=== PATIENT | female | born 1975 | race Hispanic/Latino ===

== ENCOUNTER 2023-04-30 08:09 | Emergency (ER) | payer OTHER, SELFPAY ==
[~2023-04-30] VITALS: Ht 147.3 cm; Wt 56.4 kg
[2023-04-30] MEDS ORDERED: VENTAER INH ×2 (08:28→14:20)
[2023-04-30] MEDS ORDERED: ALBU2.5V10 NEB (08:28)
[2023-04-30] MEDS ORDERED: ALBUTEROL SULFATE 2.5MG/0.5ML INH NEB SOLN NEB ONE (09:05)
[2023-04-30] MEDS ORDERED: IPRATROPIUM 0.5MG/ALBUTEROL 2.5MG INH SOL UD 3ML (DUONEB) NEB ONE ×2 (09:05→10:15)
[2023-04-30 09:15] LABS: VENOUS BASE EXCESS -1.8 (-2.0-2.0); VENOUS HCO3 22.4 MMOL/L (23.0-27.0); VENOUS O2 SATURATION 88.6 % (60.0-80.0); VENOUS PARTIAL PRESSURE CO2 36.2 mmHg (38.0-50.0); VENOUS PARTIAL PRESSURE O2 55.7 mmHg (30.0-50.0); VENOUS PH 7.409 UNITS (7.330-7.430); VENOUS STANDARD HCO3 22.8 MMOL/L; VENOUS TOTAL CO2 23.5 MMOL/L (24.0-28.0)
[2023-04-30] MEDS ORDERED: methylPREDNISolone 125MG 2ML VIAL IV ONE (09:25)
[2023-04-30 09:26] LABS: BASO # 0.1 10^3/uL (0.0-0.2); BASO % 0.7 % (0.0-1.0); EOS # 0.5 10^3/uL (0.0-0.5); EOS % 7.1 % (0.0-3.0); HEMATOCRIT 35.3 % (36.0-47.0); HEMOGLOBIN 11.3 g/dl (12.0-15.5); LYMPH # 1.3 10^3/uL (1.5-5.0); LYMPH % 18.1 % (24.0-44.0); MEAN CORPUSCULAR HEMOGLOBIN 25.5 pg (27.0-33.0); MEAN CORPUSCULAR VOLUME 79.5 fl (80.0-96.0); MONO # 0.5 10^3/uL (0.0-0.8); MONO % 6.4 % (2.0-8.0); NEUTROPHILS # 4.8 10^3/uL (1.5-8.5); NEUTROPHILS % 67.4 % (36.0-66.0); PLATELET COUNT, AUTOMATED 363 10^3/uL (150-450); RED BLOOD COUNT 4.44 10^6/uL (4.00-5.40); WHITE BLOOD COUNT 7.2 10^3/uL (4.0-10.0)
[2023-04-30 09:31] LABS: ABG HCO3 21.3 MMOL/L (22.0-26.0); ABG O2 SATURATION 73.8 % (95.0-99.0); ABG PARTIAL PRESSURE CO2 35.9 mmHg (35.0-45.0); ABG STANDARD HCO3 21.5 MMOL/L. (22.0-26.0); ABG TOTAL CO2 22.4 MMOL/L (22.0-29.0); ABG pH (ARTERIAL) 7.392 UNITS (7.350-7.450)
[2023-04-30 09:34] LABS: ABG PARTIAL PRESSURE O2 39.7 mmHg (75.0-100.0)
[2023-04-30 09:42] LABS: INR 0.92; PROTHROMBIN TIME 12.6 SECONDS (12.5-14.5)
[2023-04-30 09:47] LABS: CK-MB VALUE MASS < 1.0 NG/ML (<3.6)
[2023-04-30 09:48] LABS: CPK CREATINE PHOSPHOKINASE 84 U/L (34-145); MB/CK RELATIVE INDEX 1.19 (< OR =4)
[2023-04-30 09:49] LABS: ALBUMIN 3.6 G/DL (3.2-5.2); ALKALINE PHOSPHATASE 93 U/L (46-116); ALT/SGPT 10 U/L (7.0-40); AST/SGOT 17 U/L (<34); BILIRUBIN,DIRECT 0.2 MG/DL (<0.4); BILIRUBIN,TOTAL 0.5 MG/DL (0.3-1.2); BLOOD UREA NITROGEN 13 MG/DL (9-23); CALCIUM LEVEL 7.9 MG/DL (8.5-10.1); CARBON DIOXIDE LEVEL 23 MMOL/L (20-31); CHLORIDE LEVEL 108 MMOL/L (98-107); CREATININE FOR GFR 0.51 MG/DL (0.55-1.30); GLOMERULAR FILTRATION RATE > 60.0 (>58); GLUCOSE, FASTING 88 MG/DL (60-100); POTASSIUM SERUM 3.9 MMOL/L (3.5-5.1); SODIUM LEVEL 140 MMOL/L (136-145); TOTAL PROTEIN 6.7 G/DL (5.7-8.2)
[2023-04-30 09:51] LABS: THYROID STIMULATING HORMONE 0.917 uIU/ML (0.55-4.78)
[2023-04-30 09:53] LABS: HCG, SERUM QUALITATIVE NEGATIVE (NEGATIVE)
[2023-04-30] MEDS: MAG SULF 1GM/100ML (MAG RUN) 1 GM in IV 1 EA IV SCH ×2 (10:01→10:16)
[2023-04-30 10:51] LABS: CPK CREATINE PHOSPHOKINASE 83 U/L (34-145)
[2023-04-30 10:52] LABS: CK-MB VALUE MASS < 1.0 NG/ML (<3.6)
[2023-04-30] MEDS ORDERED: PRED10TA2 PO (14:19)
[2023-04-30 14:39] VITALS: BP 133/65
== END 2023-04-30 14:44 | disposition home or self-care (01) ==
LOC: M ED 08:09
DX: J45.901 Unspecified asthma with (acute) exacerbation (principal); Z88.5 Allergy status to narcotic agent
CPT/HCPCS: 71045; 80048; 80076; 82550; 82553; 82803; 83605; 83880; 84443; 84484; 84703; 85025; 85610; 87040; 87486; 87581; 87633; 87798; 93005; 93041; 94640; 94760; 99285; J2930; J3475

== ENCOUNTER 2023-05-23 09:55 | Emergency (ER) | payer OTHER ==
[~2023-05-23] VITALS: Ht 149.9 cm; Wt 55.1 kg
[~2023-05-23 09:55] MED LIST: ALBU2.5V10 NEB; PRED10TA2 PO; VENTAER INH
[2023-05-23 10:34] LABS: BASO % 0.3 % (0.0-1.0); EOS # 0.1 10^3/uL (0.0-0.5); EOS % 0.9 % (0.0-3.0); HEMATOCRIT 35.7 % (36.0-47.0); LYMPH # 2.2 10^3/uL (1.5-5.0); LYMPH % 15.6 % (24.0-44.0); MEAN CORPUSCULAR HEMOGLOBIN 24.4 pg (27.0-33.0); MEAN CORPUSCULAR HGB CONC 30.8 g/dl (32.0-36.5); MEAN CORPUSCULAR VOLUME 79.2 fl (80.0-96.0); MONO % 6.9 % (2.0-8.0); NEUTROPHILS # 10.7 10^3/uL (1.5-8.5); NEUTROPHILS % 75.6 % (36.0-66.0); PLATELET COUNT, AUTOMATED 464 10^3/uL (150-450); RED BLOOD COUNT 4.51 10^6/uL (4.00-5.40); WHITE BLOOD COUNT 14.1 10^3/uL (4.0-10.0)
[2023-05-23 10:36] LABS: VENOUS BASE EXCESS -1.3 (-2.0-2.0); VENOUS HCO3 22.7 MMOL/L (23.0-27.0); VENOUS O2 SATURATION 84.7 % (60.0-80.0); VENOUS PARTIAL PRESSURE CO2 35.7 mmHg (38.0-50.0); VENOUS PARTIAL PRESSURE O2 49.5 mmHg (30.0-50.0); VENOUS PH 7.421 UNITS (7.330-7.430); VENOUS STANDARD HCO3 23.1 MMOL/L; VENOUS TOTAL CO2 23.8 MMOL/L (24.0-28.0)
[2023-05-23 10:50] LABS: INR 0.98; PROTHROMBIN TIME 13.2 SECONDS (12.5-14.5)
[2023-05-23] MEDS ORDERED: methylPREDNISolone 125MG 2ML VIAL IV ONE (10:55)
[2023-05-23] MEDS ORDERED: ALBUTEROL SULFATE 2.5MG/0.5ML INH NEB SOLN INH ONE ×4 (10:55→20:40)
[2023-05-23] MEDS ORDERED: IPRATROPIUM 0.5MG/ALBUTEROL 2.5MG INH SOL UD 3ML (DUONEB) NEB ONE ×3 (10:55→17:35)
[2023-05-23 10:59] LABS: RSV AMPLIFICATION NEGATIVE (NEGATIVE)
[2023-05-23] MEDS: MAG SULF 1GM/100ML (MAG RUN) 1 GM in IV 1 EA IV SCH ×2 (11:02→11:05)
[2023-05-23 11:12] LABS: CPK CREATINE PHOSPHOKINASE 82 U/L (34-145)
[2023-05-23 11:13] LABS: ALBUMIN 3.4 G/DL (3.2-5.2); ALKALINE PHOSPHATASE 95 U/L (46-116); ALT/SGPT 14 U/L (7.0-40); AST/SGOT 9 U/L (<34); BILIRUBIN,DIRECT 0.2 MG/DL (<0.4); BILIRUBIN,TOTAL 0.6 MG/DL (0.3-1.2); BLOOD UREA NITROGEN 16 MG/DL (9-23); CARBON DIOXIDE LEVEL 25 MMOL/L (20-31); CHLORIDE LEVEL 108 MMOL/L (98-107); CK-MB VALUE MASS < 1.0 NG/ML (<3.6); CREATININE FOR GFR 0.61 MG/DL (0.55-1.30); GLOMERULAR FILTRATION RATE > 60.0 (>58); GLUCOSE, FASTING 80 MG/DL (60-100); MB/CK RELATIVE INDEX 1.21 (< OR =4); POTASSIUM SERUM 3.3 MMOL/L (3.5-5.1); SODIUM LEVEL 140 MMOL/L (136-145); TOTAL PROTEIN 6.8 G/DL (5.7-8.2)
[2023-05-23 11:15] LABS: THYROID STIMULATING HORMONE 1.085 uIU/ML (0.55-4.78)
[2023-05-23 11:24] LABS: PROCALCITONIN <0.04 ng/ml
[2023-05-23 12:18] LABS: CK-MB VALUE MASS < 1.0 NG/ML (<3.6)
[2023-05-23 12:20] LABS: CPK CREATINE PHOSPHOKINASE 78 U/L (34-145); MB/CK RELATIVE INDEX 1.28 (< OR =4)
[2023-05-23] MEDS ORDERED: ISOVUE-370 76% 100ML VIAL As Ordered ONE (16:07)
[2023-05-23] MEDS ORDERED: DOXYCYCLINE HYCLATE 100 MG in D5W MINI-BAG PLUS 100 ML IV ONE (17:30)
[2023-05-23] MEDS ORDERED: cefTRIAXone SOD 2 GM in D5W MINI-BAG PLUS 50 ML IV ONE (17:30)
[2023-05-23] MEDS ORDERED: PROHANCE 279.3MG/ML 15ML VIAL As Ordered ONE (18:50)
[2023-05-24 01:00] VITALS: BP 128/59; TEMP 97.4
[2023-05-24 01:15] VITALS: O2SAT 97
== END 2023-05-24 01:32 | disposition short-term general hospital (02) ==
LOC: M ED 09:55
DX: J45.902 Unspecified asthma with status asthmaticus (principal); M51.34 Other intervertebral disc degeneration, thoracic region; G95.20 Unspecified cord compression; Z88.5 Allergy status to narcotic agent; Z79.51 Long term (current) use of inhaled steroids; Z79.52 Long term (current) use of systemic steroids
CPT/HCPCS: 71045; 71275; 72157; 80048; 80076; 82550; 82553; 82803; 83605; 83880; 84145; 84443; 84484; 85025; 85610; 87040; 87486; 87581; 87631; 87633; 87798; 93005; 93041; 94640; 94760; 96365; 96367; 96375; 99285; A9576; J0696; J2930; J3475; Q9967

== ENCOUNTER → 2024-01-08 | Outpatient (CLI) | payer OTHER ==
[2024-01-08 15:58] LABS: BASO # 0.1 10^3/uL (0.0-0.2); EOS # 0.4 10^3/uL (0.0-0.5); EOS % 6.5 % (0.0-3.0); HEMATOCRIT 31.4 % (36.0-47.0); HEMOGLOBIN 9.4 g/dl (12.0-15.5); LYMPH # 1.4 10^3/uL (1.5-5.0); LYMPH % 22.7 % (24.0-44.0); MEAN CORPUSCULAR HEMOGLOBIN 22.1 pg (27.0-33.0); MEAN CORPUSCULAR HGB CONC 29.9 g/dl (32.0-36.5); MEAN CORPUSCULAR VOLUME 73.9 fl (80.0-96.0); MONO # 0.4 10^3/uL (0.0-0.8); MONO % 6.8 % (2.0-8.0); NEUTROPHILS # 3.8 10^3/uL (1.5-8.5); NEUTROPHILS % 62.7 % (36.0-66.0); PLATELET COUNT, AUTOMATED 452 10^3/uL (150-450); RED BLOOD COUNT 4.25 10^6/uL (4.00-5.40)
[2024-01-08 16:21] LABS: TOTAL IRON BINDING CAPACITY 388 UG/DL (250-425)
[2024-01-08 16:22] LABS: ALBUMIN 3.4 G/DL (3.2-5.2); ALKALINE PHOSPHATASE 94 U/L (46-116); ALT/SGPT 10 U/L (7.0-40); AST/SGOT 13 U/L (<34); BILIRUBIN,TOTAL 0.3 MG/DL (0.3-1.2); BLOOD UREA NITROGEN 9 MG/DL (9-23); CALCIUM LEVEL 8.4 MG/DL (8.5-10.1); CARBON DIOXIDE LEVEL 26 MMOL/L (20-31); CHLORIDE LEVEL 110 MMOL/L (98-107); CHOLESTEROL LEVEL 152 MG/DL (<200); CHOLESTEROL RISK RATIO 4.06 (<5); CREATININE FOR GFR 0.56 MG/DL (0.55-1.30); GLOMERULAR FILTRATION RATE > 60.0 (>58); GLUCOSE, FASTING 86 MG/DL (60-100); HDL CHOLESTEROL 37.4 MG/DL (>40); IRON (FE) 12 UG/DL (50-170); LDL CHOLESTEROL 90.6 MG/DL (<100); NON-HDL-C 114.6 MG/DL; PERCENT SATURATION 3.1 % (13.2-45.0); POTASSIUM SERUM 4.1 MMOL/L (3.5-5.1); SODIUM LEVEL 140 MMOL/L (136-145); TOTAL PROTEIN 6.6 G/DL (5.7-8.2); TRIGLYCERIDES LEVEL 120 MG/DL (<150)
[2024-01-08 16:25] LABS: FREE T4 1.08 NG/DL (0.89-1.76); THYROID STIMULATING HORMONE 1.102 uIU/ML (0.55-4.78)
== END ==
LOC: M PLALAB 14:53
PROVIDERS: ATTEND Nurse Practitioner Family
DX: D64.9 Anemia, unspecified (principal); Z13.220 Encounter for screening for lipoid disorders

== ENCOUNTER 2024-01-28 11:00 | Emergency (ER) | payer OTHER ==
[~2024-01-28] VITALS: Ht 147.3 cm; Wt 56.2 kg
[2024-01-28 11:01] VITALS: BP 130/63; TEMP 96; O2SAT 100
[2024-01-28] MEDS ORDERED: OMEP40CA5 (11:07)
[2024-01-28] MEDS ORDERED: FERR325T19 (11:07)
[2024-01-28] MEDS ORDERED: TREL1AER (11:07)
[2024-01-28] MEDS: IPRATROPIUM 0.5MG/ALBUTEROL 2.5MG INH SOL UD 3ML (DUONEB) NEB ONE (11:57)
[2024-01-28] MEDS ORDERED: methylPREDNISolone 125MG 2ML VIAL IV ONE (12:50)
[2024-01-28] MEDS: methylPREDNISolone 125MG 2ML VIAL IM ONE (13:07)
[2024-01-28 13:31] LABS: BASO % 0.4 % (0.0-1.0); EOS # 0.4 10^3/uL (0.0-0.5); EOS % 4.5 % (0.0-3.0); HEMOGLOBIN 10.3 g/dl (12.0-15.5); LYMPH # 0.8 10^3/uL (1.5-5.0); LYMPH % 9.6 % (24.0-44.0); MEAN CORPUSCULAR HEMOGLOBIN 21.8 pg (27.0-33.0); MEAN CORPUSCULAR HGB CONC 30.3 g/dl (32.0-36.5); MEAN CORPUSCULAR VOLUME 71.9 fl (80.0-96.0); MONO # 0.4 10^3/uL (0.0-0.8); NEUTROPHILS # 6.3 10^3/uL (1.5-8.5); NEUTROPHILS % 80.1 % (36.0-66.0); PLATELET COUNT, AUTOMATED 464 10^3/uL (150-450); RED BLOOD COUNT 4.73 10^6/uL (4.00-5.40); WHITE BLOOD COUNT 7.8 10^3/uL (4.0-10.0)
[2024-01-28] MEDS: ALBUTEROL SULFATE 2.5MG/0.5ML INH NEB SOLN NEB ONE (13:33)
[2024-01-28] MEDS: IBUPROFEN 600MG TAB PO ONE (13:42)
[2024-01-28 13:57] LABS: BLOOD UREA NITROGEN 8 MG/DL (9-23); CALCIUM LEVEL 8.6 MG/DL (8.5-10.1); CARBON DIOXIDE LEVEL 24 MMOL/L (20-31); CHLORIDE LEVEL 110 MMOL/L (98-107); CREATININE FOR GFR 0.49 MG/DL (0.55-1.30); GLOMERULAR FILTRATION RATE > 60.0 (>58); GLUCOSE, FASTING 89 MG/DL (60-100); POTASSIUM SERUM 4.4 MMOL/L (3.5-5.1); SODIUM LEVEL 140 MMOL/L (136-145)
[2024-01-28] MEDS ORDERED: BENZ200C70 PO (14:57)
[2024-01-28] MEDS ORDERED: ALBU6.7H6 INH (14:57)
[2024-01-28] MEDS ORDERED: PRED20TA PO (14:57)
== END 2024-01-28 15:03 | disposition home or self-care (01) ==
LOC: M ED 11:00
DX: U07.1 COVID-19 (principal); J45.901 Unspecified asthma with (acute) exacerbation; Z88.5 Allergy status to narcotic agent
CPT/HCPCS: 71046; 80048; 85025; 87486; 87581; 87633; 87798; 93005; 94640; 96372; 99284; J2930

== ENCOUNTER 2024-04-20 12:07 | Emergency (ER) | payer OTHER ==
[~2024-04-20] VITALS: Ht 149.9 cm; Wt 57.4 kg
[~2024-04-20 12:07] MED LIST changes: +ALBU6.7H6 INH; +BENZ200C70 PO; +FERR325T19; +OMEP40CA5; +PRED20TA PO; +TREL1AER
[2024-04-20] MEDS ORDERED: BACL10TA2 PO (12:28)
[2024-04-20] MEDS ORDERED: APAP325T4 PO (12:28)
[2024-04-20] MEDS ORDERED: DICL100G10 TOP (12:29)
[2024-04-20] MEDS ORDERED: CAPS42.54 TOP (12:29)
[2024-04-20] MEDS ORDERED: ONDA4TAB6 PO (12:30)
[2024-04-20] MEDS ORDERED: OMEP40CA4 PO (12:30)
[2024-04-20] MEDS ORDERED: DULO1CAP4 PO (12:31)
[2024-04-20] MEDS ORDERED: FLOR250C PO (12:31)
[2024-04-20] MEDS ORDERED: MM S100C PO (12:31)
[2024-04-20] MEDS ORDERED: FERR325T3 PO (12:32)
[2024-04-20] MEDS ORDERED: OXYC-517 (12:35)
[2024-04-20] MEDS: ONDANSETRON 4MG 2ML VIAL IV ONE (14:15)
[2024-04-20] MEDS: NS 1,000 ML IV ONE (14:16)
[2024-04-20 14:21] LABS: LIPASE 22 U/L (12-53)
[2024-04-20 14:24] LABS: ALBUMIN 3.4 G/DL (3.2-5.2); ALKALINE PHOSPHATASE 142 U/L (46-116); ALT/SGPT 15 U/L (7.0-40); AST/SGOT 28 U/L (<34); BILIRUBIN,DIRECT 0.2 MG/DL (<0.4); BILIRUBIN,TOTAL 0.7 MG/DL (0.3-1.2); BLOOD UREA NITROGEN 7 MG/DL (9-23); CALCIUM LEVEL 9.3 MG/DL (8.5-10.1); CARBON DIOXIDE LEVEL 24 MMOL/L (20-31); CHLORIDE LEVEL 104 MMOL/L (98-107); CREATININE FOR GFR 0.46 MG/DL (0.55-1.30); GLOMERULAR FILTRATION RATE > 60.0 (>58); GLUCOSE, FASTING 100 MG/DL (60-100); POTASSIUM SERUM 4.8 MMOL/L (3.5-5.1); SODIUM LEVEL 138 MMOL/L (136-145); TOTAL PROTEIN 7.1 G/DL (5.7-8.2)
[2024-04-20] MEDS: PERCOCET 5MG/325MG TAB PO ONE (14:48)
[2024-04-20] MEDS: diphenhydrAMINE 50MG/ML VIAL IV STA (14:49)
[2024-04-20] MEDS: methylPREDNISolone 125MG 2ML VIAL IV ONE (14:49)
[2024-04-20 15:31] LABS: BASO # 0.1 10^3/uL (0.0-0.2); BASO % 0.5 % (0.0-1.0); EOS # 0.1 10^3/uL (0.0-0.5); EOS % 0.6 % (0.0-3.0); HEMATOCRIT 37.4 % (36.0-47.0); HEMOGLOBIN 12.1 g/dl (12.0-15.5); LYMPH # 1.1 10^3/uL (1.5-5.0); MEAN CORPUSCULAR HEMOGLOBIN 27.8 pg (27.0-33.0); MEAN CORPUSCULAR HGB CONC 32.4 g/dl (32.0-36.5); MEAN CORPUSCULAR VOLUME 85.8 fl (80.0-96.0); MONO # 0.8 10^3/uL (0.0-0.8); MONO % 5.6 % (2.0-8.0); NEUTROPHILS # 12.1 10^3/uL (1.5-8.5); NEUTROPHILS % 84.9 % (36.0-66.0); PLATELET COUNT, AUTOMATED 417 10^3/uL (150-450); RED BLOOD COUNT 4.36 10^6/uL (4.00-5.40); WHITE BLOOD COUNT 14.2 10^3/uL (4.0-10.0)
[2024-04-20] MEDS: METHYLNALTREXONE BROMIDE 12MG/0.6ML VIAL (RELISTOR) SC ONE (16:30)
[2024-04-20] MEDS ORDERED: ANUS25SU PR (17:07)
[2024-04-20] MEDS ORDERED: COLA100C5 PO (17:07)
[2024-04-20] MEDS ORDERED: MIRA3350 PO (17:07)
[2024-04-20] MEDS: PREPARATION H SUPP (HEMORRHOID) PR STA (17:17)
[2024-04-20 17:49] VITALS: BP 121/65; TEMP 99.3; O2SAT 95
== END 2024-04-20 17:55 | disposition home or self-care (01) ==
LOC: M ED 12:07
DX: K56.41 Fecal impaction (principal); J44.9 Chronic obstructive pulmonary disease, unspecified; Z79.899 Other long term (current) drug therapy; Z88.5 Allergy status to narcotic agent
CPT/HCPCS: 74018; 80048; 80076; 83690; 85025; 93005; 96361; 96372; 96374; 96375; 99284; J1200; J2212; J2405; J2919

== ENCOUNTER → 2024-05-09 | Outpatient (CLI) | payer OTHER ==
[~2024-05-09] MED LIST changes: +ANUS25SU PR; +APAP325T4 PO; +BACL10TA2 PO; +CAPS42.54 TOP; +COLA100C5 PO; +DICL100G10 TOP; +DULO1CAP4 PO; +FERR325T3 PO; +FLOR250C PO; +MIRA3350 PO; +MM S100C PO; +OMEP40CA4 PO; +ONDA-282 PO; +OXYC-517
== END ==
LOC: M PLALAB 15:58
PROVIDERS: ATTEND Nurse Practitioner Family
DX: D50.9 Iron deficiency anemia, unspecified (principal); E78.2 Mixed hyperlipidemia; Z53.9 Procedure and treatment not carried out, unspecified reason

== ENCOUNTER 2024-12-01 00:25 | Emergency (ER) | payer MEDICAID, OTHER, SELFPAY ==
[~2024-12-01] VITALS: Ht 149.9 cm; Wt 60.0 kg
[2024-12-01] MEDS ORDERED: GABA-284 (07:42)
[2024-12-01] MEDS ORDERED: METH-1164 (07:42)
[2024-12-01] MEDS: ONDANSETRON 4MG 2ML VIAL IV ONE (07:51)
[2024-12-01] MEDS: NS (Normal Saline) 0.9% 1,000 ML IV ONE (07:53)
[2024-12-01 08:00] LABS: BASO % 0.2 % (0.0-1.0); EOS % 0.1 % (0.0-3.0); HEMATOCRIT 32.2 % (36.0-47.0); HEMOGLOBIN 9.6 g/dl (12.0-15.5); LYMPH # 0.4 10^3/uL (1.5-5.0); LYMPH % 2.4 % (24.0-44.0); MEAN CORPUSCULAR HEMOGLOBIN 20.8 pg (27.0-33.0); MEAN CORPUSCULAR HGB CONC 29.8 g/dl (32.0-36.5); MEAN CORPUSCULAR VOLUME 69.8 fl (80.0-96.0); MONO # 0.2 10^3/uL (0.0-0.8); MONO % 1.4 % (2.0-8.0); NEUTROPHILS # 14.6 10^3/uL (1.5-8.5); NEUTROPHILS % 95.4 % (36.0-66.0); PLATELET COUNT, AUTOMATED 575 10^3/uL (150-450); RED BLOOD COUNT 4.61 10^6/uL (4.00-5.40); WHITE BLOOD COUNT 15.3 10^3/uL (4.0-10.0)
[2024-12-01 08:32] LABS: ALBUMIN 3.9 G/DL (3.2-5.2); BILIRUBIN,DIRECT 0.2 MG/DL (<0.4); BILIRUBIN,TOTAL 1.2 MG/DL (0.3-1.2); TOTAL PROTEIN 8.3 G/DL (5.7-8.2)
[2024-12-01] MEDS ORDERED: ISOVUE-370 76% 100ML VIAL As Ordered ONE (09:07)
[2024-12-01] MEDS: ACETAMINOPHEN 500 MG TAB PO ONE (09:36)
[2024-12-01] MEDS ORDERED: ONDA-282 PO (10:22)
[2024-12-01 10:36] VITALS: BP 126/67; TEMP 99.5; O2SAT 98
== END 2024-12-01 10:39 | disposition home or self-care (01) ==
LOC: M ED 00:25
DX: R11.10 Vomiting, unspecified (principal); R19.7 Diarrhea, unspecified; J44.9 Chronic obstructive pulmonary disease, unspecified; D50.9 Iron deficiency anemia, unspecified; F17.210 Nicotine dependence, cigarettes, uncomplicated; Z88.5 Allergy status to narcotic agent; Z79.51 Long term (current) use of inhaled steroids; Z79.899 Other long term (current) drug therapy
CPT/HCPCS: 74177; 76705; 80047; 80076; 83690; 85025; 96361; 96374; 99284; J2405; Q9967